=== PATIENT | female | born 1970 | race Two or more races ===

== ENCOUNTER 2023-04-02 07:41 | Emergency (ER) | payer OTHER ==
[~2023-04-02] VITALS: Ht 172.7 cm; Wt 72.6 kg
== END 2023-04-02 10:48 | disposition home or self-care (01) ==
LOC: ER 07:41
DX: S00.93XA Contusion of unspecified part of head, initial encounter (principal); S90.31XA Contusion of right foot, initial encounter; S40.022A Contusion of left upper arm, initial encounter; S40.021A Contusion of right upper arm, initial encounter; X83.8XXA Intentional self-harm by other specified means, initial encounter; Y93.9 Activity, unspecified; Y92.59 Other trade areas as the place of occurrence of the external cause; Y99.9 Unspecified external cause status